=== PATIENT | female | born 1995 | race Caucasian/White ===

== ENCOUNTER 2023-07-30 20:37 | Emergency (ER) | payer MEDICAID ==
[2023-07-30 21:05] VITALS: BP 130/75; O2SAT 99
--- NOTE | 2023-07-30 21:11 | ED Physician Documentation ---
History of Present Illness - Stated complaint Stated Complaint: RT KNEE PX - Chief complaint Chief Complaint: Ext Problem - History obtained from History obtained from: Patient - History of Present Illness Timing: Today Pain level max: 7 Pain level now: 6 - Additonal information Additional information: Patient is a 28-year-old female who [place] emergency [place], hitting her knee on a metal checked. Complains of pain to the right knee. Worse with walking, palpation. Better with rest. Denies any possibility of . Has not taken anything for pain., No head, neck, back pain. Review of Systems : denies: Now [facility] PAST MEDICAL HISTORY - Past Medical History Past Medical History: Yes GI: Ulcerative colitis - Past Surgical History Past Surgical History: No - Present Medications Home Medications: Ambulatory Orders Medication Instructions Recorded Confirmed Mesalamine [Lialda] 4.8 mg PO DAILY 07/30/23 07/30/23 - Allergies Allergies/Adverse Reactions: Allergies Allergy/AdvReac Type Severity Reaction Status Date / Time No Known Drug Allergies Allergy Verified 07/30/23 21:05 - Social History Does the pt smoke?: No Smoking Status: Never smoker Does the pt drink ETOH?: Yes Does the pt have substance abuse?: No - Immunizations Immunizations are current?: Yes - POLST Patient has POLST: No PD ED PE NORMAL - Vitals Vital signs reviewed: Yes - General General: Alert and oriented X 3, No acute distress - HEENT HEENT: Moist mucous membranes - Derm Derm: Warm and dry - Extremities Extremities: Other (R knee - Mild erythema to the anterior aspect of the knee. ACL, MCL, PCL, LCL are intact. Unable to tolerate meniscus testing. Has a mild to moderate joint effusion.) - Neuro Neuro: Alert and oriented X 3 Results - Vitals Vitals: Vital Signs - 24 hr 07/30/23 20:55 Temperature 36.5 C Heart Rate 86 Respiratory 18 Rate Blood Pressure 130/75 O2 Saturation 99 Oxygen O2 Source Room air - Rads (name of study) R knee xray Relevant Findings:: Final report received, See rad report PD Medical Decision Making - ED course Complexity details: reviewed results, considered differential, d/w patient ED course: No acute findings on x-ray of the right knee. Patient declines any pain medication here. Declines crutches. Recommend Motrin Tylenol as needed for pain. Recommend that she follow-up with her doctor if she is still having pain in 1 week. Patient counseled regarding signs and symptoms for which I believe and urgent re-evaluation would be necessary. Patient with good understanding of and agreement to plan and is comfortable going home at this time This document was made in part using voice recognition software. While efforts are made to proofread this document, sound alike and grammatical errors may occur. Departure - Departure Disposition: 01 Home, Self Care Clinical Impression: Knee contusion Qualifiers: Encounter type: initial encounter Laterality: right Qualified Code(s): S80.01XA - Contusion of right knee, initial encounter Condition: Good Instructions: ED Contusion Lower Ext, ED Effusion Knee Follow-Up: your,doctor in 1 week if still having pain [Other] Comments: You can use Motrin or Tylenol as needed for pain. I do not see any evidence of fractures on your x-rays tonight. You may have swelling in your knee tomorrow. You can use ice as needed, you can rest your knee as needed as well. Please return if you worsen. Forms: PCP List Discharge Date/Time: 07/30/23 21:42
--- NOTE | 2023-07-30 21:40 | XRAY Report ---
PROCEDURE: Knee 4+V RT INDICATIONS: fall, R knee pain TECHNIQUE: 5 views of the knee(s) were acquired. COMPARISON: None. FINDINGS: Bones: No fractures or No suspicious bony lesions. Soft tissues: No knee joint effusion. No suspicious soft tissue calcifications or masses. IMPRESSION: No acute bony abnormality. No significant joint effusion. Reviewed by: Wellington Marmolejo MD on 07/30/2023 9:39 PM PDT Approved by: Wellington Marmolejo MD on 07/30/2023 9:39 PM PDT Station ID: [id number]
== END 2023-07-30 21:42 | disposition home or self-care (01) ==
LOC: ED 20:37
DX: S80.01XA Contusion of right knee, initial encounter (principal); W19.XXXA Unspecified fall, initial encounter; W22.8XXA Striking against or struck by other objects, initial encounter; Y92.89 Other specified places as the place of occurrence of the external cause
CPT/HCPCS: 99283